=== PATIENT | female | born 1940 | race Two or more races ===

== ENCOUNTER 2023-08-05 08:54 | Inpatient (IN) | payer OTHER ==
[~2023-08-05] VITALS: Ht 160 cm; Wt 45.4 kg
[2023-08-05] MEDS ORDERED: SYNTHROID75 MCG PO (09:52)
[2023-08-05] MEDS ORDERED: COZAAR100 MG PO (09:52)
[2023-08-05] MEDS ORDERED: SERTRALINE20 MG/1 ML (09:53)
[2023-08-05] MEDS ORDERED: BUSPIRONE HCL5 MG PO (09:53)
[2023-08-05] MEDS ORDERED: RESTORIL15 M1 PO (09:53)
[2023-08-05] MEDS ORDERED: BUSPIRONE HCL7.5 MG PO (09:54)
[2023-08-05] MEDS ORDERED: ATORVASTATIN CA20 MG PO (09:54)
[2023-08-05] MEDS ORDERED: TRAZODONE HCL50 MG PO (09:54)
[2023-08-05] MEDS ORDERED: AMLODIPINE-OLM1 EAC2 (09:54)
--- NOTE | 2023-08-05 09:55 | NUR ---
PTE EN REAL AMBULANCE EN COMPANAI DE PARAMEDICOS Y FAMILIAR. FAMILIAR REFIERE QUE PTE NO COME HACE 5 BRYANT Y DEBILIDAD. SE MIDEN S/V Y SE UBICA. PTE CANALIZADA DE AMBULANCIA CON ANGIO #18, PATENTE BLANCA DE EDEMA Y ENROJECIMIENTO, RECIBIENDO .9NSS. SE MIDEN S/V Y SE UBICA EN JANNA 7.
--- NOTE | 2023-08-05 12:07 | NUR ---
PACIENTE EVALUADA POR DR ADAMS QUI[place] [facility], RIMA ANDERSON LE ORIENA A PACIENTE SOBRE EL MISMO Y VERBALIZA ENTENDER. SE LE COLECTAN MUESTRAS DE LABORATORIO Y SE CANALIZA BAJO MEDIDAS ASEPTICA, SE ADMINISTRAN MED REBEKAH ORDEN. SE LE REALIZA EKG Y SE PRESENTA A DR ADAMS.
== END 2023-08-08 12:09 | disposition home health service (06) | DRG 593 ==
LOC: ER 08:54 → MEDJ 18:21
PROVIDERS: General Practice; ADMIT Internal Medicine; ATTEND Internal Medicine
PROC: BW28ZZZ Computerized Tomography (CT Scan) of Head (ICD-10-PCS; 2023-08-05)
PROC: 0DH63UZ Insertion of Feeding Device into Stomach, Percutaneous Approach (ICD-10-PCS; principal; 2023-08-06)
DX: L89.151 Pressure ulcer of sacral region, stage 1 (principal); E46 Unspecified protein-calorie malnutrition; R13.19 Other dysphagia; E86.0 Dehydration; G93.89 Other specified disorders of brain; L08.9 Local infection of the skin and subcutaneous tissue, unspecified; F03.90 Unspecified dementia, unspecified severity, without behavioral disturbance, psychotic disturbance, mood disturbance, and anxiety; R41.82 Altered mental status, unspecified; Z74.01 Bed confinement status; E03.9 Hypothyroidism, unspecified; Z20.822 Contact with and (suspected) exposure to COVID-19; I10 Essential (primary) hypertension; B96.4 Proteus (mirabilis) (morganii) as the cause of diseases classified elsewhere; B95.2 Enterococcus as the cause of diseases classified elsewhere; B96.89 Other specified bacterial agents as the cause of diseases classified elsewhere; E11.9 Type 2 diabetes mellitus without complications; Z79.4 Long term (current) use of insulin

== ENCOUNTER 2023-08-13 07:41 | Emergency (ER) | payer OTHER ==
[~2023-08-13] VITALS: Ht 165.1 cm; Wt 45.4 kg
[~2023-08-13 07:41] MED LIST: AMLODIPINE-OLM1 EAC2; ATORVASTATIN CA20 MG PO; BUSPIRONE HCL5 MG PO; BUSPIRONE HCL7.5 MG PO; COZAAR100 MG PO; RESTORIL15 M1 PO; SERTRALINE20 MG/1 ML; SYNTHROID75 MCG PO; TRAZODONE HCL50 MG PO
== END 2023-08-13 13:25 | disposition home or self-care (01) ==
LOC: ER 07:41
DX: K94.23 Gastrostomy malfunction (principal); Z74.01 Bed confinement status; R47.01 Aphasia; R13.19 Other dysphagia

== ENCOUNTER → 2023-08-15 | Emergency (ER) | payer OTHER ==
[~2023-08-15] VITALS: Ht 157.5 cm; Wt 59.0 kg
== END | disposition home or self-care (01) ==
LOC: ER 12:39
DX: K94.20 Gastrostomy complication, unspecified (principal); F03.90 Unspecified dementia, unspecified severity, without behavioral disturbance, psychotic disturbance, mood disturbance, and anxiety
CPT/HCPCS: 74177; 99284; Q9965

== ENCOUNTER 2023-10-27 09:25 | Emergency (ER) | payer OTHER ==
[~2023-10-27] VITALS: Ht 157.5 cm; Wt 52.2 kg
[2023-10-27] MEDS ORDERED: SERTRALINE HCL50 MG PO (09:39)
[2023-10-27] MEDS ORDERED: AMLODIPINE BESYL5 MG PO (09:39)
== END 2023-10-27 20:14 | disposition home or self-care (01) ==
LOC: ER 09:25
DX: K94.23 Gastrostomy malfunction (principal)

== ENCOUNTER 2023-11-30 16:25 | Emergency (ER) | payer OTHER ==
[~2023-11-30] VITALS: Ht 160 cm; Wt 45.4 kg
[~2023-11-30 16:25] MED LIST changes: +AMLODIPINE BESYL5 MG PO; +SERTRALINE HCL50 MG PO
== END 2023-12-01 00:19 | disposition home or self-care (01) ==
LOC: ER 16:25
DX: K94.23 Gastrostomy malfunction (principal)

== ENCOUNTER 2023-12-02 09:27 | Emergency (ER) | payer OTHER ==
[~2023-12-02] VITALS: Ht 157.5 cm; Wt 56.7 kg
== END 2023-12-02 11:58 | disposition home or self-care (01) ==
LOC: ER 09:27
DX: K94.23 Gastrostomy malfunction (principal); I10 Essential (primary) hypertension